=== PATIENT | male | born 1985 | race Caucasian/White ===

== ENCOUNTER 2016-07-25 18:17 | Emergency (ER) | payer SELFPAY ==
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
[2016-07-25 19:49] LABS: CHLORIDE,CL 104 mmol/L (98-107); SODIUM,NA 142 mmol/L (136-145)
[2016-07-25 19:51] VITALS: BP 128/80
[2016-07-25] MEDS ORDERED: Ketorolac 60 MG/2 ML SDV IM ONE (19:51)
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
== END 2016-07-25 20:21 | disposition home or self-care (01) ==
LOC: VM.ED 18:17
DX: S09.90XA Unspecified injury of head, initial encounter (principal); S09.93XA Unspecified injury of face, initial encounter; S01.81XA Laceration without foreign body of other part of head, initial encounter; F17.200 Nicotine dependence, unspecified, uncomplicated; Y00.XXXA Assault by blunt object, initial encounter; Y04.0XXA Assault by unarmed brawl or fight, initial encounter
CPT/HCPCS: 12011; 36415; 70450; 70486; 72125; 80053; 85025; 85610; 96372; 99284; 99285; G0480; J1885; 12001

== ENCOUNTER 2016-09-04 07:51 | Emergency (ER) | payer SELFPAY ==
[2016-09-04 08:06] VITALS: BP 118/75
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
[2016-09-04] MEDS ORDERED: Ketorolac 60 MG/2 ML SDV IM ONE (08:49)
== END 2016-09-04 09:26 | disposition home or self-care (01) ==
LOC: VM.ED 07:51
DX: S20.211A Contusion of right front wall of thorax, initial encounter (principal); M79.1 Myalgia; F17.210 Nicotine dependence, cigarettes, uncomplicated; Y04.0XXA Assault by unarmed brawl or fight, initial encounter
CPT/HCPCS: 71101; 96372; 99283; J1885

== ENCOUNTER 2016-10-24 12:47 | Emergency (ER) | payer SELFPAY ==
[2016-10-24 13:07] VITALS: BP 122/89
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
== END 2016-10-24 14:30 | disposition home or self-care (01) ==
LOC: VM.ED 12:47
DX: S01.511A Laceration without foreign body of lip, initial encounter (principal); S00.03XA Contusion of scalp, initial encounter; F11.20 Opioid dependence, uncomplicated; F12.20 Cannabis dependence, uncomplicated; F17.210 Nicotine dependence, cigarettes, uncomplicated; Y04.8XXA Assault by other bodily force, initial encounter; Y92.009 Unspecified place in unspecified non-institutional (private) residence as the place of occurrence of the external cause
CPT/HCPCS: 12011; 12014; 36415; 70450; 80305; 80349; 99284; G0480